=== PATIENT | female | born 1995 | race Native Hawaiian/Other Pacific Islander ===

== ENCOUNTER 2022-04-10 11:25 | Emergency (ER) | payer OTHER ==
[~2022-04-10] VITALS: Ht 165.1 cm; Wt 63.5 kg
[2022-04-10 11:25] VITALS: TEMP 97.2
[2022-04-10 12:24] LABS: POTASSIUM 4.3 mmol/L (3.6-5.2)
[2022-04-10 12:25] LABS: PLATELET COUNT 379 K/uL (152-353)
[2022-04-10 13:23] VITALS: BP 110/71
== END 2022-04-10 13:25 ==
LOC: ED 11:25
PROVIDERS: Emergency Medicine
DX: R07.89 Other chest pain (principal); R06.09 Other forms of dyspnea; D64.89 Other specified anemias
CPT/HCPCS: 36415; 80053; 80307; 81025; 82550; 84484; 85027; 93005; 99284

== ENCOUNTER 2022-10-23 21:07 | Emergency (ER) | payer OTHER ==
[~2022-10-23] VITALS: Ht 157.5 cm; Wt 81.6 kg
[2022-10-23 21:42] LABS: PLATELET COUNT 406 K/uL (152-353)
[2022-10-23] MEDS ORDERED: LISI10TA11 PO (21:42)
[2022-10-23] MEDS ORDERED: KEPPRA1000 MG PO (21:42)
[2022-10-23 21:48] LABS: POTASSIUM 3.7 mmol/L (3.6-5.2)
[2022-10-23 23:25] VITALS: BP 129/68; TEMP 98.1
== END 2022-10-23 23:25 | disposition home or self-care (01) ==
LOC: ED 21:07
PROVIDERS: Family Medicine
DX: N39.0 Urinary tract infection, site not specified (principal)
CPT/HCPCS: 80053; 80307; 81000; 81025; 85027; 99283